=== PATIENT | female | born 1980 ===

== ENCOUNTER 2018-01-13 05:30 | Inpatient (IN) | payer BC ==
[2018-01-13] MEDS ORDERED: Misoprostol 200 MCG TAB PR PRN (05:39)
[2018-01-13] MEDS ORDERED: HYDROcodone/Acetaminophen 5/325 mg Tablet PO PRN ×2 (05:39)
[2018-01-13] MEDS ORDERED: NS w/ Oxytocin 10 units 500 ML IV SCH (05:39)
[2018-01-13] MEDS ORDERED: Ondansetron HCl/PF 4 MG/2 ML Vial IVP PRN ×3 (05:39→18:02)
[2018-01-13] MEDS ORDERED: Ibuprofen 800 MG TAB PO PRN (05:39)
[2018-01-13] MEDS ORDERED: Docusate 100 MG CAP PO PRN (05:39)
[2018-01-13] MEDS ORDERED: Diphenoxylate HCl/Atropine Tablet PO PRN ×2 (05:39)
[2018-01-13] MEDS ORDERED: Acetaminophen 500 MG TAB PO PRN (05:39)
[2018-01-13] MEDS ORDERED: NS / Oxytocin 40 units/1000ml 1,000 ML IV PRN (05:39)
[2018-01-13] MEDS ORDERED: Butorphanol Tartrate 1 MG/ML VIAL SLOW IVP PRN (05:39)
[2018-01-13] MEDS ORDERED: Promethazine HCl 25 MG/ML VIAL IM PRN ×2 (05:39→11:44)
[2018-01-13] MEDS ORDERED: Lidocaine 1% (PF) 30 ML VIAL SC PRN (05:39)
[2018-01-13] MEDS ORDERED: Penicillin G 2.5 MILL.units 50 ML IVPB SCH (06:00)
[2018-01-13 06:17] VITALS: BMI 29.0
[2018-01-13] MEDS: Lactated Ringer's 1,000 ML IV SCH ×3 (06:30→17:01)
[2018-01-13] MEDS: Penicillin G Potassium 5 MILL.UNITS VIAL ONE ×2 (06:41→07:08)
[2018-01-13 07:13] LABS: Hemoglobin 10.8 g/dL (12.0-16.0); Mean Corpuscular HGB CONC 34.4 g/dL (32.0-36.0); Mean Corpuscular Hemoglobin 32.1 pg (27.0-31.0); Mean Corpuscular Volume 93.4 fL (78.0-98.0); Mean Platelet Volume 7.3 fL (7.4-10.4); Platelet Count 142 thou/uL (130-400); RBC Distribution Width 12.1 % (11.5-14.5); Red Blood Cell (RBC) Count 3.37 mill/uL (4.20-5.40); White Blood Cell (WBC) Count 8.7 thou/uL (4.8-10.8)
[2018-01-13 07:41] LABS: HBSAg Index 0.17 S/CO (0-0.99); Hep B Surf Ag Non-Reactive S/CO (NonReactive); Syphilis Antibody Nonreactive (Nonreactive); Syphilis Antibody Index 0.04 S/CO (<1.00 Non-Reactive)
[2018-01-13] MEDS ORDERED: Fentanyl 4 mcg/Bup 0.1% Cadd 0 ML ONE (10:14)
[2018-01-13] MEDS: Penicillin G 2.5 MILL.units 2.5 MILL.UNITS in Premix Bag 1 BAG IVPB SCH ×2 (11:40→17:01)
[2018-01-13] MEDS ORDERED: Eucerin (Mineral Oil/Petrolatum,White) 30 gm Jar TOP PRN (11:44)
[2018-01-13] MEDS ORDERED: diphenhydrAMINE 50 MG/ML VIAL IVP PRN (11:44)
[2018-01-13] MEDS ORDERED: ePHEDrine/0.9% NaCl/PF SYRINGE 50 mg/10 ml SLOW IVP PRN (11:44)
[2018-01-13] MEDS ORDERED: Naloxone HCl 0.4 mg/ml Vial IVP PRN ×2 (11:44)
[2018-01-13] MEDS ORDERED: Acetaminophen 325 MG TAB PO PRN (11:44)
[2018-01-13] MEDS ORDERED: Lactated Ringer's 500 ML IV PRN (11:44)
[2018-01-13] MEDS ORDERED: Communication Order-Pharmacy FS SCH (11:45)
[2018-01-13] MEDS ORDERED: Fentanyl 4 mcg/Bupivacaine 0.1% Cassette 100 ML EPIDURAL SCH (11:45)
[2018-01-13] MEDS ORDERED: Fentanyl 4 mcg/Bup 0.1% Cadd 100 ML ONE (17:13)
[2018-01-13] MEDS ORDERED: diphenhydrAMINE 25 MG CAP PO PRN (18:02)
[2018-01-13] MEDS ORDERED: Bisacodyl 10 MG SUPP PR PRN (18:02)
[2018-01-13] MEDS ORDERED: Lanolin Ointment 7 GM TUBE TOP PRN (18:02)
[2018-01-13] MEDS ORDERED: Acetaminophen/Codeine 30-300mg Tablet PO PRN ×2 (18:02)
[2018-01-13] MEDS ORDERED: Zolpidem Tartrate 5 MG TAB PO PRN (18:02)
[2018-01-13] MEDS ORDERED: Preparation H Ointment 28 GM TUBE PR PRN (18:02)
[2018-01-13] MEDS ORDERED: Benzocaine/Menthol 20-0.5% 60 ML CAN TOP PRN (18:02)
[2018-01-13] MEDS ORDERED: Milk Of Magnesia 30 ML UDCUP PO PRN (18:02)
[2018-01-13] MEDS ORDERED: Misoprostol 200 MCG TAB VAG PRN (18:02)
[2018-01-13] MEDS ORDERED: Adacel (T-DAP) 0.5 ML VIAL IM ONE (18:02)
[2018-01-13] MEDS ORDERED: NS / Oxytocin 40 units/1000ml 1,000 ML IV SCH (18:15)
[2018-01-13] MEDS ORDERED: Enoxaparin Sodium 30 MG/0.3 ML SYRINGE SC SCH (21:00)
[2018-01-13] MEDS: Docusate Calcium (SURFAK) 240 MG CAP PO SCH (22:53)
[2018-01-13] MEDS: Ibuprofen 800 MG TAB PO SCH (22:53)
[2018-01-14] MEDS: Penicillin G 2.5 MILL.units 2.5 MILL.UNITS in Premix Bag 1 BAG IVPB SCH (02:40)
[2018-01-14 05:32] LABS: Hemoglobin 10.6 g/dL (12.0-16.0); Mean Corpuscular HGB CONC 34.3 g/dL (32.0-36.0); Mean Corpuscular Hemoglobin 32.1 pg (27.0-31.0); Mean Corpuscular Volume 93.7 fL (78.0-98.0); Mean Platelet Volume 7.3 fL (7.4-10.4); Platelet Count 123 thou/uL (130-400); RBC Distribution Width 11.8 % (11.5-14.5); Red Blood Cell (RBC) Count 3.29 mill/uL (4.20-5.40); White Blood Cell (WBC) Count 9.6 thou/uL (4.8-10.8)
[2018-01-14] MEDS: Ferrous Sulfate 325 MG TAB PO SCH ×2 (08:02→17:07)
[2018-01-14] MEDS: Ibuprofen 800 MG TAB PO SCH ×2 (08:03→13:46)
[2018-01-14] MEDS: Docusate Calcium (SURFAK) 240 MG CAP PO SCH (08:03)
[2018-01-14] MEDS ORDERED: Prenatal Vitamin 1 TAB PO SCH (09:00)
[2018-01-14] MEDS ORDERED: Bupivacaine 0.25% HCL 30 ML VIAL ONE (11:11)
[2018-01-14 17:52] VITALS: BP 133/74; TEMP 98.7
== END 2018-01-14 21:30 | disposition home or self-care (01) | DRG 807 ==
LOC: L&D 05:36 → 3SW 22:19
PROVIDERS: ADMIT Obstetrics & Gynecology; ATTEND Obstetrics & Gynecology
PROC: 10907ZC Drainage of Amniotic Fluid, Therapeutic from Products of Conception, Via Natural or Artificial Opening (ICD-10-PCS; principal; 2018-01-13)
PROC: 10E0XZZ Delivery of Products of Conception, External Approach (ICD-10-PCS; 2018-01-13)
PROC: 3E033VJ Introduction of Other Hormone into Peripheral Vein, Percutaneous Approach (ICD-10-PCS; 2018-01-13)
PROC: 0HQ9XZZ Repair Perineum Skin, External Approach (ICD-10-PCS; 2018-01-13)
DX: O99.824 Streptococcus B carrier state complicating childbirth (principal); Z37.0 Single live birth; O76 Abnormality in fetal heart rate and rhythm complicating labor and delivery; Z3A.39 39 weeks gestation of pregnancy; O70.0 First degree perineal laceration during delivery; O99.12 Other diseases of the blood and blood-forming organs and certain disorders involving the immune mechanism complicating childbirth
CPT/HCPCS: 36415; 51702; 85027; 86780; 86850; 86900; 86901; 87340; J1650; J2405; J2540; S0020